=== PATIENT | female | born 1945 | race Two or more races ===

== ENCOUNTER → 2024-12-05 | Outpatient (CLI) | payer MEDICARE, MEDICAID, SELFPAY ==
--- NOTE | 2024-12-05 | XR_ITS ---
Examination: AP chest single view lateral chest 2 views Technique one AP lateral upright chest 2 views Exam date and time: December 05, 2024 1310 hours INDICATIONS: Coughing shortness of breath beginning one week ago. FINDINGS: Basilar bronchitis No pneumonia Normal heart size Old deformity right clavicle IMPRESSION: Mild basilar bronchitis pattern
== END | disposition home or self-care (01) ==
PROVIDERS: PCP Nurse Practitioner Family; Referring Provider Nurse Practitioner Family; Visit Provider Nurse Practitioner Family
DX: R06.02 Shortness of breath (principal); R05.9 Cough, unspecified; Z12.82 Encounter for screening for malignant neoplasm of nervous system
CPT/HCPCS: 71046

== ENCOUNTER → 2024-12-18 | Outpatient (CLI) | payer MEDICARE, MEDICAID, SELFPAY ==
[2024-12-18 13:12] LABS: Misc Send Out* See Sep Rpt
[2024-12-18 14:35] LABS: Anion Gap 10 (7-16); BUN/Creatinine Ratio 25 Ratio (12-20); Blood Urea Nitrogen 20 mg/dL (9-23); Calcium 9.2 mg/dL (8.3-10.6); Carbon Dioxide 29.7 mMol/L (20.0-31.0); Chloride 99 mMol/L (98-107); Creatinine (Component) 0.8 mg/dL (0.6-1.3); Glucose 90 mg/dL (74-106); Osmolality,Calculated 280 (275-295); Potassium 3.5 mMol/L (3.4-5.1); Sodium 139 mMol/L (136-145); eGFR > 60 See Note
== END | disposition home or self-care (01) ==
LOC: COPL 12:54
PROVIDERS: PCP Nurse Practitioner Family; Referring Provider Internal Medicine Cardiovascular Disease; Visit Provider Internal Medicine Cardiovascular Disease
DX: R07.89 Other chest pain (principal)
CPT/HCPCS: 36415; 80048

== ENCOUNTER → 2025-01-22 | Outpatient (CLI) | payer MEDICARE, MEDICAID, SELFPAY ==
--- NOTE | 2025-01-22 | XR_ITS ---
Examination: Knee bilateral, 6 views Technique: Knee AP, lateral, oblique each knee total 6 views Date and time of exam: January 22, 2025 1150 hours INDICATIONS: Bilateral knee swelling and pain beginning 3 months ago. 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
== END | disposition home or self-care (01) ==
LOC: CDIM 10:51
PROVIDERS: PCP Nurse Practitioner Family; Referring Provider Nurse Practitioner Family; Visit Provider Nurse Practitioner Family
DX: M17.0 Bilateral primary osteoarthritis of knee (principal)
CPT/HCPCS: 73562

== ENCOUNTER 2025-06-15 01:24 | Emergency (ER) | payer MEDICARE, MEDICAID, SELFPAY ==
[2025-06-15 01:26] VITALS: BMI 28.3
[2025-06-15 01:44] VITALS: BP 165/79; PULSE 63; RESP 18; TEMP 36.7; O2SAT 95
[2025-06-15 02:01] VITALS: BP 182/80; PULSE 67; RESP 15; O2SAT 96
[2025-06-15 02:14] VITALS: BP 169/77; PULSE 62; RESP 15; TEMP 36.9; O2SAT 96
--- NOTE | 2025-06-15 02:36 | XR_ITS ---
Examination: CT chest, without intravenous contrast. CT abdomen, without intravenous contrast. CT pelvis, without intravenous contrast. 2-D sagittal and coronal reconstructions. 3-D reconstructions. Date and time of exam:June 15, 2025 0336 hours INDICATIONS: Patient fell today with image of the chest and abdomen, chest pain abdomen pain CTDI vol (mgy) 11.31 DLP (MGycm)762 Technique: Multiple CT images, 3.0 mm slice thickness, obtained chest, abdomen, pelvis, with the high-resolution 64 slice scanner.. Sagittal and coronal 2-D reconstructions are obtained. 3-D reconstructions Low dose protocols were performed. One or more of the following dose reduction techniques were used; automated exposure control, adjustment of the mA and/or KV according to patient size, use of iterative reconstruction technique. Findings: Thoracic aorta pulmonary arteries intact Old appearing fracture right clavicle No pneumothorax pulmonary contusion or hemothorax Manubrium and body of the sternum and thoracic and lumbar vertebral bodies negative for acute fracture or Chronic osteoporotic compression L2 and T12 Acute fractures right second, third, fourth ribs anteriorly without significant displacement No liver splenic or renal laceration Abdominal aorta intact, no free body in the abdomen Negative for pneumoperitoneum Urinary bladder intact Hips bones of the pelvis is intact. IMPRESSION: Acute nondisplaced fractures right second, third, fourth ribs anteriorly Thoracic aorta pulmonary arteries intact No pneumothorax pulmonary contusion or hemothorax No abdominal parenchymal laceration. Abdominal aorta intact No free blood in abdomen or pelvis
--- NOTE | 2025-06-15 02:36 | XR_ITS ---
Examination: CT cervical spine without contrast 2-D sagittal reconstructions 2-D coronal reconstructions 3-D reconstructions. Exam date and time:June 15, 2025, 1534 hours INDICATIONS: Patient fell today with injury to the neck, neck pain CTDI:vol (mGy) 12.76 DLP: (mGycm) 287 Technique: Multiple 2 mm axial sections of the cervical spine have been obtained. The coronal and sagittal reconstructions have been obtained. 3-D reconstructions have been obtained. Low dose protocols were performed. One or more of the following dose reduction techniques were used; automated exposure control, adjustment of the mA and/or KV according to patient size, use of iterative reconstruction technique. Findings: Axial sections demonstrate intact base of the skull. C1 exhibit satisfactory relationship to the odontoid. No acute cervical vertebral body fracture seen. Alignment posterior spinous processes satisfactory. Impression: No acute cervical fracture.
--- NOTE | 2025-06-15 02:36 | XR_ITS ---
Examination: CT brain head without contrast. 2-D sagittal coronal reconstructions Date and time of exam:June 15, 2025 0332 hours INDICATIONS: Patient fell today with injury to the head, head pain CTDI: vol (mGy):43.80 DLP: (mGycm):807 Technique: Multiple CT axial sections of the brain have been obtained, 5 mm slice thickness. Contrast has not been administered. 2-D sagittal, coronal reconstructions have been obtained Low dose protocols were performed. One or more of the following dose reduction techniques were used; automated exposure control, adjustment of the mA and/or KV according to patient size, use of iterative reconstruction technique. Findings: No significant ventricular enlargement. Intra-axial or extra-axial hemorrhage density is not seen. No mass effect or midline shift Basal cisterns are not remarkable. Fourth ventricle is midline. Cranial vault intact. Impression: Negative for acute hemorrhage, mass effect or midline shift
--- NOTE | 2025-06-15 02:36 | XR_ITS ---
Examination: AP chest single view Technique one AP portable upright chest single view. Date and time: June 15, 2025, 0246 hours., Comparison December 05 2024. INDICATIONS: Shortness of breath chest pain today. FINDINGS: Mild enlargement cardiac contour. Mild vascular congestion. No lobar pneumonia or pulmonary edema. IMPRESSION: Mild vascular congestion.
[2025-06-15] MEDS: MORPHINE SULF INJ 10 MG/ML VIAL 8 MG IM (02:41)
[2025-06-15 03:01] LABS: Basophils # (Auto) 0.1 Thou/mm3 (0.0-0.2); Basophils % (Auto) 1 % (0-2.5); Eosinophils # (Auto) 0.5 Thou/mm3 (0.0-0.5); Eosinophils % (Auto) 5 % (0-10); Hematocrit 38.6 % (36.0-46.0); Hemoglobin 12.6 g/dL (12.0-16.0); Immature Granulocytes Auto 0.04 Thou/mm3 (0.00-0.00); Lymphocytes # (Auto) 1.5 Thou/mm3 (1.0-4.8); Lymphocytes % (Auto) 15 % (10-50); Mean Corpuscular HGB Conc 32.6 g/dl (31.0-37.0); Mean Corpuscular Hemoglobin 30.2 pg (25.0-35.0); Mean Corpuscular Volume 93 fL (80-100); Monocytes # (Auto) 0.7 Thou/mm3 (0.0-0.8); Monocytes % (Auto) 7 % (0-12); Neutrophils # (Auto) 7.0 Thou/mm3 (1.8-7.7); Neutrophils % (Auto) 72 % (37-80); Nucleated Red Blood Cell # 0.00 Thou/mm3 (0.00-0.00); Nucleated Red Blood Cell % 0 /100 WBC (0); Platelet Count 194 Thou/mm3 (140-440); RDW Standard Deviation 43.1 fL (36.4-46.3); Red Blood Count 4.17 Miln/mm3 (4.00-5.20); White Blood Count 9.8 Thou/mm3 (3.6-11.0)
[2025-06-15 03:15] LABS: Anion Gap 10 (7-16); BUN/Creatinine Ratio 23 Ratio (12-20); Blood Urea Nitrogen 18 mg/dL (9-23); Calcium 9.1 mg/dL (8.3-10.6); Carbon Dioxide 26.4 mMol/L (20.0-31.0); Chloride 106 mMol/L (98-107); Creatinine (Component) 0.8 mg/dL (0.6-1.3); Estimated Creatinine Clearance 51.1 mL/min (>60); Glucose 110 mg/dL (74-106); Magnesium 1.6 mg/dL (1.6-2.6); Osmolality,Calculated 286 (275-295); Potassium 4.1 mMol/L (3.4-5.1); Sodium 142 mMol/L (136-145); eGFR > 60 See Note
--- NOTE | 2025-06-15 04:06 | PRELIM_ITS ---
CT scan of the head without intravenous contrast (axial sections with sagittal and coronal reformats) June 15, 2025 0332 hours Clinical History: Fall. Reference is made to the prior report dated October 15, 2022. Findings: There is no evidence of intracranial hemorrhage, mass effect or midline shift. Basal ganglia calcifications are present bilaterally. There are 4 mm calcifications in the right frontal and temporal lobes, possibly calcified granulomas. There is atheromatous calcification of the intracranial arteries. Th ere are periventricular white matter hypodensities, compatible with chronic small vessel ischemia. There is mild volume loss. The calvarium is intact. The mastoid air cells and the visualized paranasal sinuses are clear. A chronic fracture is noted in the medial wall of the right orbit. Degenerative changes are noted in bilateral temporomandibular joints. Impression: 1. No evidence of intracranial hemorrhage, midline shift or calvarial fracture. 2. Periventricular chronic small vessel ischemia and volume loss. 3. Other findings as described above. Suggest clinical correlation and follow up accordingly. Report Electronically Signed By: Kristopher Finn 06/15/2025 4:06:01 AM [EST]
--- NOTE | 2025-06-15 04:08 | PRELIM_ITS ---
CT scan of the cervical spine without intravenous contrast (axial sections with sagittal and coronal reformats) June 15, 2025 0334 hours Clinical History: Trauma. Compression: No prior study is available for comparison. Findings: There is no evidence of acute fracture or traumatic subluxation. The bones are osteopenic. Degenerative changes are noted in the form of multilevel marginal osteophytes, decreased disc spaces and facet arthropathy. The prevertebral soft tissues are unremarkable. Impression: No evidence of acute fracture or traumatic subluxation. Other findings as described above. Suggest clinical correlation and follow up accordingly. Report Electronically Signed By: Kristopher Finn 06/15/2025 4:07:44 AM [EST]
[2025-06-15 04:15] LABS: Collection Type, Urine Clean Catch
[2025-06-15 04:20] LABS: Bacteria,Urine Rare; Bilirubin,Urine Negative (Negative); Blood,Urine Negative (Negative); Clarity,Urine Clear (Clear/Hazy); Color,Urine Lt-Yellow (Lt Yel-Yel); Culture Indicated,Urine Not Indicated; Glucose, Urine Negative (Negative); Ketones,Urine Negative (Negative); Leukocyte Esterase,Urine Positive (Negative); Nitrite,Urine Negative (Negative); PH,Urine 6.5 (5.0-7.0); Protein,Urine Negative (Neg - Trace); RBC,Urine 1 /hpf (0-3); Specific Gravity,Urine 1.016 (1.001-1.035); Squamous Epithelial Cell,Urine 2 /hpf (0-5); Urobilinogen,Urine Negative mg/dL (0.0-1.0); WBC,Urine 10 /hpf (0-5)
[2025-06-15 04:38] VITALS: BP 123/63; PULSE 64; RESP 13; TEMP 36.8; O2SAT 93
--- NOTE | 2025-06-15 04:48 | PRELIM_ITS ---
CT scan of the chest, abdomen and pelvis without intravenous contrast (axial sections with sagittal and coronal reformats) June 15, 2025 at 0336 hours Clinical History: Fall. Comparison: No prior study is available for comparison. Findings: Bibasilar dependent atelectasis is present. There is mild heterogeneous attenuation of the lower lungs, suggestive of small airways disease. There is no pleural effusion or pneumothorax. The thoracic aorta demonstrates atheromatous calcification without evidence of aneurysm. There is no mediastinal collection. There is no pericardial effusion. The gallbladder is surgically absent. The bile ducts are mildly prominent. There is a 1.1 x 1.2 cm cyst in interpolar region of the left kidney. The liver, spleen, pancreas, adrenals and right kidney are unremarkable on this noncontrast study. The bowel is unremarkable for trauma. A moderate amount of fecal material is present in the colon. The urinary bladder is partially distended and demonstrates mild wall thickening. The uterus is unremarkable. There is no free fluid or free air. No evidence of acute fracture is identified. There is a chronic healing fracture of right anterior 3rd rib. There is a chronic nonunited fracture of the lateral segment of the right clavicle. Degenerative changes are identified in the spine. Please note that evaluation of soft tissue/vascular structures and bowel loops is limited due to absence of IV and oral contrast. Impression: No evidence of acute visceral or bony injury to the chest, abdomen or pelvis on this noncontrast study. Other findings as described above. Suggest clinical correlation and follow up accordingly. Report Electronically Signed By: Kristopher Finn 06/15/2025 4:47:19 AM [EST]
--- NOTE | 2025-06-15 05:07 | PD.EDFALL ---
ED Fall Injury RME/HPI General Chief Complaint: Fall Stated Complaint: FALL R AXILLA AREA PAIN Time Seen by Provider: 06/15/25 01:48 Arrival date/time: 06/15/25 01:24 RME / HPI RME / HPI Narrative: Refer to [facility]. Related Data Home Medications ?Medication ?Instructions ?Recorded ?Confirmed hydrochlorothiazide 12.5 mg tablet 1 tab PO DAILY ##0 03/16/11 Budesonide/Formoterol Fumarate HFA 30 days ##0 10/10/14 * (SYMBICORT 160/4.5 *) Bupropion Hcl (Bupropion Xl) 30 days ##0 10/10/14 omeprazole 20 mg capsule,delayed 90 days ##0 10/10/14 release Previous Rx's ?Medication ?Instructions ?Recorded hydrocodone 5 mg-acetaminophen 325 0.5 tab PO Q8H PRN pain #10 tabs 06/24/24 mg tablet nirmatrelvir 300 mg (150 mg See Rx Instructions PO .COMPLEX 06/30/24 x2)-ritonavir 100 mg tablet,dose #30 tabs pack (Paxlovid) acetaminophen 300 mg-codeine 30 mg 2 tab PO Q8H PRN pain #20 tabs 06/15/25 tablet ondansetron 4 mg disintegrating 4 mg PO TID PRN nausea and 06/15/25 tablet vomiting 30 days #10 tabs Allergies Allergy/AdvReac Type Severity Reaction Status Date / Time No Known Allergies Allergy Verified 06/15/25 01:30 Review of Systems Review of Systems Systems Reviewed: All systems reviewed, normal except as documented Past Medical History Past Medical History NEUROLOGIC: Positive Neurological Disorders (Ataxia) CARDIAC: Positive Hypertension GASTROINTESTINAL: Positive Gastrointestinal Disorders and Gall Bladder Disease PSYCHO/SOCIAL: Positive Depression ED Exam Narrative Physical exam: Refer to [facility]. Course Course Course Narrative: CXR is ordered for determining the etiology of shortness of breath. Quality Measures none Orders Category Date Time Status Straight [In and Out Catheter] X1 Care 06/15/25 02:[address] cervical spine wo con Stat Exams 06/15/25 02:[address] chest abdomen pelvis wo Stat Exams 06/15/25 02:[address] head/brain wo con Stat Exams 06/15/25 02:36 Taken XR chest 1V portable Stat Exams 06/15/25 02:36 Taken BMP [Basic Metabolic Panel] Stat Lab 06/15/25 02:54 Completed CBC Stat Lab 06/15/25 02:54 Completed Magnesium Stat Lab 06/15/25 02:54 Completed UA, C/S IF [Urinalysis, C/S if Indicated] Stat Lab 06/15/25 04:10 Completed Morphine Inj Med 06/15/25 02:35 Discontinued 8 mg IM X1 ONE Vital Signs Vital signs: Vital Signs Temperature 98.1 F 06/15/25 01:44 Pulse Rate 63 06/15/25 01:44 Respiratory Rate 18 06/15/25 01:44 Blood Pressure 165/79 H 06/15/25 01:44 Pulse Oximetry (%) 95 06/15/25 01:44 Oxygen Delivery Method Room Air 06/15/25 01:44 Fall MDM Narrative MDM Narrative:: Scribe Attestation: Kriti, Coral Samuels, am scribing for and in the presence of Dr. Almendarez. Provider Notation: Although this document has been carefully reviewed, there may still be some phonetic and other typographical errors.? These errors are purely grammatical due to imperfections in the software program and should not be construed in any way to? compromise the substance of the patient's medical care during this visit. This section includes all my notes and documentations, including HPI, PE, and ED course. 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 She lost her balance while getting up. Uncertain about head injury. No syncope or near syncope. Reports severe pain in the right rib cage. No other complaints. ROS: All negative except as documented in HPI. Physical Exam: General: Alert and oriented. Appears uncomfortable. Eyes: Conjunctivae and lids clear. EOMI. PERRL. ENT: No signs of head trauma. Neck: Supple. No tenderness. Heart: RRR. Lungs: No respiratory distress. Good air movement. No rhonchi, wheezing, rales. Chest: No tenderness. Abdomen: Soft and nontender. Normal bowel sounds. No distension. No rebound or guarding. Back: No tenderness. Legs: No clubbing, cyanosis, edema. Skin: Warm and dry. Neuro: Alert and oriented X 3. Cranial Nerves II-XII grossly intact. No peripheral motor deficits. Musculoskeletal: All major joints and bones are not tender with no limited ROM. I reviewed all diagnostic test results: My interpretation of the chest x-ray is: No acute findings. My review of the Head/Brain CT report is: NAD. My review of the C-Spine CT report is: No acute fracture. My review of the Chest/Abdomen/Pelvis CT report is: NAD. Blood tests and urine tests unremarkable. At this point, diagnoses include: Rib contusion. Treatment here included: Morphine 8 mg IM. She felt much better. Recommended supportive care. Based on my best medical judgment, made decision no further evaluation or treatment indicated at this time. Patient understands and agrees to the discharge instructions customized and printed, see below. Discharge Instructions from Dr. Almendarez printed for you: 1. Fortunately, there is no very serious injury. Such as brain injury or broken neck or broken ribs or other broken bone or internal organ injury. 2. You sustained chest wall contusion. See attached handout. 3. Tylenol with codeine for pain. Zofran for nausea/vomiting. 4. Expect one month for full recovery. 5. See a private doctor on 06/17/2025 for recheck. Ask for help until you are completely better. Ask to review all test results and official radiology reports, to make sure you receive all necessary follow-ups and monitoring. 6. Seek immediate medical care with worsening or with any concerns. Kevin Almendarez MD Patient data External records reviewed:: [facility] previous records (Reviewed prior ED records from 06/30/24. Patient was seen for COVID-19.) Clinical information provided by:: patient and family (Daughter) Social determinants that could affect healthcare access:: none Patient has the following chronic illnesses:: Ataxia, Hypertension, Gall Bladder Disease, Depression How is presenting disease/condition affected by chronic disease/condition?: exacerbated by Evaluation data The following diagnostics were reviewed and interpreted by me:: lab results and radiology exam(s) Lab and/or radiology exams considered but not ordered:: None Interpretation Summary: I reviewed all diagnostic test results: My interpretation of the chest x-ray is: No acute findings. My review of the Head/Brain CT report is: NAD. My review of the C-Spine CT report is: No acute fracture. My review of the Chest/Abdomen/Pelvis CT report is: NAD. Blood tests and urine tests unremarkable. Medications / Prescriptions Medications or Prescriptions considered but not ordered:: None Medication administrations:: Medication Administration History Discontinued Medications Morphine Sulfate (Morphine Sulf Inj 10 Mg/Ml Vial) 8 mg IM X1 ONE Stop: 06/15/25 02:36 Last Admin: 06/15/25 02:41 Dose: 8 mg Documented By: JAMEEL Morphine 8 mg IM Consultations Consultation(s) initiated? (list below): No Diagnosis Fall Differential Diagnosis: syncope, dislocation of shoulder region, fracture of wrist, compression fracture, concussion with loss of consciousness and concussion without loss of consciousness Most likely diagnosis given after review of the tests above:: Rib contusion Admission Indicated Admission indicated?: not indicated Explain why admission is indicated or not indicated:: With significant improvement and no condition needing emergent intervention, there was no indication for admission. Admission Request Was there a request for admission?: No Disposition Plan Disposition Plan: Discharge Discharge Attestation Discharge Attestation: The patient and all family members were given an opportunity to ask questions and understood the discharge instructions. Discharge instructions specifically effects, indications for sooner follow up or return to the emergency department, and the expected course of current diagnosis. Patient condition: Stable Discharge Plan Plan Patient Disposition: HOME (Self Care) Prescriptions/Referrals Prescriptions/Med Rec: New acetaminophen-codeine 300-30 mg tablet 2 tab PO Q8H MDD 6 PRN (Reason: pain) Qty: 20 0RF ondansetron 4 mg tablet,disintegrating 4 mg PO TID PRN (Reason: nausea and vomiting) 30 Days Qty: 10 0RF No Action hydrochlorothiazide 12.5 MG tablet 1 tab PO DAILY Qty: 0 omeprazole 20 MG capsule,delayed release(DR/EC) 90 Days Qty: 0 Budesonide/Formoterol Fumarate HFA * (SYMBICORT 160/4.5 *) 10.2 GM HFA.AER.AD 30 Days Qty: 0 Bupropion Hcl (Bupropion Xl) 150 MG TAB.SR.24H 30 Days Qty: 0 hydrocodone-acetaminophen 5-325 mg tablet 0.5 tab PO Q8H MDD 3 tablets/day PRN (Reason: pain) Qty: 10 0RF Paxlovid 300 mg (150 mg x 2)-100 mg tablets,dose pack See Rx Instructions .ROUTE .COMPLEX Qty: 30 0RF Rx Instructions: take TWO 150 mg tablets of nirmatrelvir with ONE 100 mg tablet of ritonavir twice daily for 5 days Referrals: No Primary/Family,Physician [Primary Care Provider] - In 1 week Problem List Clinical Impression: Rib contusion Patient/Caregiver Discharge Instructions Discharge Activity: activity as tolerated Education Materials: ED Chest Wall Contusion Additional Instructions: Discharge Instructions from Dr. Almendarez printed for you: 1. Fortunately, there is no very serious injury. Such as brain injury or broken neck or broken ribs or other broken bone or internal organ injury. 2. You sustained chest wall contusion. See attached handout. 3. Tylenol with codeine for pain. Zofran for nausea/vomiting. 4. Expect one month for full recovery. 5. See a private doctor on 06/17/2025 for recheck. Ask for help until you are completely better. Ask to review all test results and official radiology reports, to make sure you receive all necessary follow-ups and monitoring. 6. Seek immediate medical care with worsening or with any concerns. Instrucciones de alexis del Dr. Almendarez, impresas para usted: 1. Afortunadamente, no hay lesiones graves. Karlie ana luisa lesi?n cerebral, fractura de rolly, costillas rotas u otra lesi?n ?sea o de ?rganos internos. 2. Sufri? ana luisa contusi?n en la pared tor?cica. Consulte el folleto adjunto. 3. Tylenol con code?na para el dolor. Zofr?n para las n?useas y los v?mitos. 4. La recuperaci?n completa tardar? un mes. 5. Consulte con un m?dico particular el 17/06/2025 para ana luisa nueva revisi?n. Solicite ayuda hasta que se recupere por completo. Solicite la revisi?n de todos los resultados de las pruebas y los informes radiol?gicos oficiales para asegurarse de recibir todos los controles y monitoreo necesarios. 6. Busque atenci?n m?dica inmediata si presenta empeoramiento o si tiene alguna inquietud. Print Language: Icelandic Stand Alone Forms: Carlene Award Info., Patient Portal Info Letter
[2025-06-15 05:20] VITALS: BP 131/67; PULSE 61; RESP 18; TEMP 36.6; O2SAT 94
== END 2025-06-15 05:21 | disposition home or self-care (01) ==
PROVIDERS: Emergency Provider Emergency Medicine
DX: S20.211A Contusion of right front wall of thorax, initial encounter (principal); I10 Essential (primary) hypertension; F32.A Depression, unspecified; Z79.899 Other long term (current) drug therapy; W19.XXXA Unspecified fall, initial encounter; Z79.51 Long term (current) use of inhaled steroids
CPT/HCPCS: 36415; 70450; 71045; 71250; 72125; 74176; 80048; 81001; 83735; 85025; 96372; 99283; J2270